=== PATIENT | female | born 1970 | race Caucasian/White ===

== ENCOUNTER 2016-11-22 19:56 | Emergency (ER) | payer OTHER ==
[2016-11-22 20:24] LABS: URINE BILIRUBIN NEGATIVE (NEGATIVE); URINE BLOOD NEGATIVE (NEGATIVE); URINE KETONE NEGATIVE (NEGATIVE); URINE LEUKOCYTE ESTERASE NEGATIVE (NEGATIVE); URINE NITRATE NEGATIVE (NEGATIVE); URINE PROTEIN NEGATIVE (NEGATIVE); UROBILINOGEN NORMAL mg/dL (<1.0)
[2016-11-22 20:43] LABS: BASO % 0.4 % (0.1-1.2); EOS # 0.2 10_X3_uL (0.0-0.4); EOS % 1.4 % (0.7-5.8); GRAN # 6.6 10_X3_uL (1.6-6.1); GRAN % 62.9 % (34.0-71.1); HEMATOCRIT 37.6 % (34-45); HEMOGLOBIN 13.1 g/dL (11.2-15.7); LYMPH % 28.7 % (19.3-51.7); MEAN CORPUSCULAR HEMOGLOBIN 30.4 pg (27.0-33.0); MEAN CORPUSCULAR HGB CONC 34.8 g/dL (32.0-36.0); MEAN CORPUSCULAR VOLUME 87.2 fL (79-95); MEAN PLATELET VOLUME 10.6 fl (7.5-11.5); MONO # 0.7 10_X3_uL (0.2-0.9); MONO % 6.6 % (4.7-12.5); PLATELET COUNT 271 x10_3/uL (182-369); RED BLOOD COUNT 4.31 x10_6/uL (3.9-5.2); RED CELL DISTRIBUTION WIDTH 14.1 % (11.7-14.4); WHITE BLOOD COUNT 10.5 x10_3/uL (4.0-10.0)
[2016-11-22 20:48] LABS: URINE GLUCOSE (UA) 1000 mg/dL (NORMAL)
[2016-11-22 21:03] LABS: ALBUMIN 4.1 gm/dL (3.4-5.0); ALKALINE PHOSPHATASE 138 U/L (50-136); ALT/SGPT 41 U/L (3.5-33.9); AST/SGOT 23 U/L (7.04-26.96); BILIRUBIN,TOTAL 0.37 mg/dL (0.0-1.0); BLOOD UREA NITROGEN 13 mg/dL (7-18); CALCIUM 8.9 mg/dL (8.7-10.7); CARBON DIOXIDE 25 mmol/L (21-32); CREATININE 0.7 mg/dL (0.6-1.3); POTASSIUM 4.1 mmol/L (3.5-5.1); SODIUM 131 mmol/L (136-145); TOTAL PROTEIN 6.9 gm/dL (6.4-8.2)
[2016-11-22 21:11] LABS: GLUCOSE,RANDOM 552 mg/dL (70-99)
== END 2016-11-22 22:36 | disposition home or self-care (01) ==
LOC: ER 19:56
PROVIDERS: Emergency Medicine
DX: E11.65 Type 2 diabetes mellitus with hyperglycemia (principal); R11.0 Nausea; I10 Essential (primary) hypertension; F17.210 Nicotine dependence, cigarettes, uncomplicated; Z88.5 Allergy status to narcotic agent; Z79.899 Other long term (current) drug therapy; Z79.4 Long term (current) use of insulin
CPT/HCPCS: 36415; 80053; 81003; 82962; 85025; 96361; 96374; 96375; 99070; 99284-25